=== PATIENT | male | born 1965 | race Caucasian/White ===

== ENCOUNTER → 2016-07-15 | Outpatient (CLI) | payer BC ==
[~2016-07-15] MED LIST: BACTRIM DS 8001 TAB PO; CEFTIN 250250 MG/TAB PO; CEFTIN250 M1 PO; CIPRO 250MG TA250 MG PO; COLISTIN IV; ERYTHROMYCIN E3.5 GM OU; KLONOPIN 0.5MG0.5 MG PO; LEVSIN0.125 M1 PO; LORTAB 5/500 501 TAB PO; PROBIOTIC FORMU1 CAP PO; PYRIDIUM 100MG100 MG PO; ROCEPHIN 2GM VIAL21 IV; TEARS NATURALE15 M1 OP; TOVIAZ8 MG PO; TYLENOL 325MG325 MG PO
== END ==
LOC: SUN.DIA 10:25
DX: E11.65 Type 2 diabetes mellitus with hyperglycemia (principal); Z79.4 Long term (current) use of insulin; Z71.3 Dietary counseling and surveillance; F17.210 Nicotine dependence, cigarettes, uncomplicated
CPT/HCPCS: G0108

== ENCOUNTER → 2016-08-13 | Outpatient (CLI) | payer BC | LOC: SUN.DIA 11:44 | DX: E11.65 Type 2 diabetes mellitus with hyperglycemia (principal); Z79.84 Long term (current) use of oral hypoglycemic drugs; E66.9 Obesity, unspecified; Z71.3 Dietary counseling and surveillance; E78.5 Hyperlipidemia, unspecified; I10 Essential (primary) hypertension | CPT/HCPCS: G0108 ==

== ENCOUNTER 2017-08-17 14:48 | Inpatient (IN) | payer OTHER ==
[~2017-08-17] VITALS: Ht 182.9 cm; Wt 97.5 kg
[2017-08-17] VITALS (352 sets, daily range): BP systolic 93–115; BP diastolic 57–76; PULSE 94–100; TEMP 97.9–98; O2SAT 76–100
[2017-08-17] MEDS ORDERED: TRESIBA FL100 UNIT/1 SQ (14:54)
[2017-08-17 15:20] LABS: BASO # 0.1 (0.0-0.2); BASO % 0.5 % (0.0-2.0); EOS # 0.1 (0.0-0.7); EOS % 0.7 % (0-4.0); GRAN # 11.5 (1.4-6.5); GRAN % 76.3 % (42.2-75.2); HEMATOCRIT 42.5 % (42.0-52.0); HEMOGLOBIN 14.1 g/dl (13.5-18.0); LYMPH # 2.3 (1.2-3.4); LYMPH % 14.9 % (20.0-51.0); MEAN CELL VOLUME 92 fl (80.0-100.0); MEAN CORPUSCULAR HEMOGLOBIN 31 pg (27.0-31.0); MEAN CORPUSCULAR HGB CONC 33 g/dl (33.0-37.0); MEAN PLATELET VOLUME 9.2 fl (7.4-10.4); MONO % 6.8 % (1.7-9.3); PLATELET COUNT 513 K/mm3 (130-400); RED BLOOD COUNT 4.63 M/mm3 (4.20-5.60); REDCELL DISTRIBUTION WIDTH-CV 13.7 % (11.5-14.5)
[2017-08-17 15:24] LABS: INR 1.2 (0.8-3.0); PROTHROMBIN TIME 14.3 SECONDS (9.7-12.8)
[2017-08-17 15:28] LABS: ALANINE AMINOTRANSFERASE 40 U/L (21-72); ALBUMIN 3.5 gm/dL (3.5-5.0); ALKALINE PHOSPHATASE 135 U/L (50-136); ANION GAP 12 mmol/L (7-16); AST,SGOT 21 U/L (15-37); BILIRUBIN,TOTAL 0.4 mg/dL (0.0-1.0); BLOOD UREA NITROGEN 32 mg/dL (9-20); CALCIUM 9.4 mg/dL (8.4-10.2); CARBON DIOXIDE 24 mmol/L (22-30); CHLORIDE 101 mmol/L (98-107); CREATININE, serum 0.92 mg/dL (0.66-1.25); GLUCOSE 153 mg/dL (74-106); LIPASE 106 U/L (23-300); POTASSIUM 3.7 mmol/L (3.4-5.0); SODIUM 137 mmol/L (137-145); TOTAL PROTEIN 8.1 gm/dL (6.4-8.2)
[2017-08-17 15:46] LABS: TROPONIN-I < 0.012 ng/mL (0.000-0.034)
[2017-08-18] VITALS (1315 sets, daily range): BP systolic 91–129; BP diastolic 52–72; PULSE 74–115; TEMP 97.6–98.5; O2SAT 69–100
[2017-08-18 06:11] LABS: BASO # 0.1 (0.0-0.2); BASO % 0.5 % (0.0-2.0); EOS # 0.2 (0.0-0.7); EOS % 1.8 % (0-4.0); GRAN # 6.1 (1.4-6.5); GRAN % 62.3 % (42.2-75.2); LYMPH # 2.5 (1.2-3.4); LYMPH % 25.4 % (20.0-51.0); MEAN CELL VOLUME 93 fl (80.0-100.0); MEAN CORPUSCULAR HGB CONC 32 g/dl (33.0-37.0); MEAN PLATELET VOLUME 9.3 fl (7.4-10.4); MONO # 0.9 (0.1-0.6); MONO % 9.4 % (1.7-9.3); RED BLOOD COUNT 3.67 M/mm3 (4.20-5.60); REDCELL DISTRIBUTION WIDTH-CV 13.9 % (11.5-14.5)
[2017-08-18 06:17] LABS: MEAN CORPUSCULAR HEMOGLOBIN 30 pg (27.0-31.0); PLATELET COUNT 380 K/mm3 (130-400)
[2017-08-18 06:22] LABS: CALCIUM 8.1 mg/dL (8.4-10.2); CREATININE, serum 0.74 mg/dL (0.66-1.25); POTASSIUM 4.1 mmol/L (3.4-5.0)
[2017-08-19] VITALS (764 sets, daily range): BP systolic 94–112; BP diastolic 53–73; PULSE 62–79; TEMP 97–983.7; O2SAT 88–100
[2017-08-19 17:07] LABS: BASO # 0.1 (0.0-0.2); BASO % 0.8 % (0.0-2.0); EOS # 0.2 (0.0-0.7); EOS % 1.9 % (0-4.0); GRAN # 4.8 (1.4-6.5); GRAN % 53.2 % (42.2-75.2); HEMATOCRIT 33.4 % (42.0-52.0); LYMPH # 3.4 (1.2-3.4); LYMPH % 37.2 % (20.0-51.0); MEAN CELL VOLUME 92 fl (80.0-100.0); MEAN CORPUSCULAR HEMOGLOBIN 30 pg (27.0-31.0); MEAN CORPUSCULAR HGB CONC 33 g/dl (33.0-37.0); MEAN PLATELET VOLUME 9.6 fl (7.4-10.4); MONO # 0.6 (0.1-0.6); MONO % 6.6 % (1.7-9.3); PLATELET COUNT 390 K/mm3 (130-400); RED BLOOD COUNT 3.63 M/mm3 (4.20-5.60); REDCELL DISTRIBUTION WIDTH-CV 13.8 % (11.5-14.5)
[2017-08-19 17:14] LABS: ALANINE AMINOTRANSFERASE 33 U/L (21-72); ALBUMIN 2.6 gm/dL (3.5-5.0); ALKALINE PHOSPHATASE 93 U/L (50-136); ANION GAP 5 mmol/L (7-16); AST,SGOT 23 U/L (15-37); BILIRUBIN,TOTAL < 0.1 mg/dL (0.0-1.0); BLOOD UREA NITROGEN 20 mg/dL (9-20); CARBON DIOXIDE 23 mmol/L (22-30); CHLORIDE 107 mmol/L (98-107); CREATININE, serum 0.66 mg/dL (0.66-1.25); GLUCOSE 154 mg/dL (74-106); POTASSIUM 3.8 mmol/L (3.4-5.0); SODIUM 135 mmol/L (137-145); TOTAL PROTEIN 6.2 gm/dL (6.4-8.2)
[2017-08-20 03:50] VITALS: BP 94/58; PULSE 66; TEMP 98
[2017-08-20 06:36] LABS: BASO # 0.1 (0.0-0.2); BASO % 0.8 % (0.0-2.0); EOS # 0.1 (0.0-0.7); GRAN # 2.5 (1.4-6.5); GRAN % 41.4 % (42.2-75.2); LYMPH % 49.2 % (20.0-51.0); MEAN CELL VOLUME 92 fl (80.0-100.0); MEAN CORPUSCULAR HGB CONC 33 g/dl (33.0-37.0); MEAN PLATELET VOLUME 9.3 fl (7.4-10.4); MONO # 0.4 (0.1-0.6); MONO % 6.4 % (1.7-9.3); PLATELET COUNT 381 K/mm3 (130-400); RED BLOOD COUNT 3.58 M/mm3 (4.20-5.60); REDCELL DISTRIBUTION WIDTH-CV 13.7 % (11.5-14.5)
[2017-08-20 06:50] LABS: CALCIUM 8.2 mg/dL (8.4-10.2); CREATININE, serum 0.63 mg/dL (0.66-1.25); POTASSIUM 3.9 mmol/L (3.4-5.0)
[2017-08-20 06:52] LABS: HEMATOCRIT 32.9 % (42.0-52.0); HEMOGLOBIN 10.7 g/dl (13.5-18.0); MEAN CORPUSCULAR HEMOGLOBIN 30 pg (27.0-31.0)
[2017-08-20 07:43] VITALS: BP 98/57; PULSE 66; TEMP 98.2
[2017-08-20 11:11] VITALS: BP 98/59; PULSE 74; TEMP 98.4
[2017-08-20 15:42] VITALS: BP 108/66; PULSE 81; TEMP 97.8
[2017-08-20 19:08] VITALS: BP 108/61; PULSE 82; TEMP 98.4
[2017-08-20 23:45] VITALS: BP 87/53; PULSE 74; TEMP 97.8
[2017-08-21 04:27] VITALS: BP 98/51; PULSE 72; TEMP 97.7
[2017-08-21 06:53] LABS: BASO # 0.1 (0.0-0.2); BASO % 0.8 % (0.0-2.0); EOS # 0.1 (0.0-0.7); EOS % 1.6 % (0-4.0); GRAN # 3.5 (1.4-6.5); HEMATOCRIT 35.5 % (42.0-52.0); HEMOGLOBIN 11.4 g/dl (13.5-18.0); LYMPH % 42.1 % (20.0-51.0); MEAN CELL VOLUME 93 fl (80.0-100.0); MEAN CORPUSCULAR HEMOGLOBIN 30 pg (27.0-31.0); MEAN CORPUSCULAR HGB CONC 32 g/dl (33.0-37.0); MEAN PLATELET VOLUME 9.7 fl (7.4-10.4); MONO # 0.4 (0.1-0.6); MONO % 6.1 % (1.7-9.3); PLATELET COUNT 411 K/mm3 (130-400); REDCELL DISTRIBUTION WIDTH-CV 13.8 % (11.5-14.5)
[2017-08-21 07:07] LABS: CALCIUM 8.5 mg/dL (8.4-10.2); CREATININE, serum 0.6 mg/dL (0.66-1.25); POTASSIUM 3.9 mmol/L (3.4-5.0)
[2017-08-21 07:30] VITALS: BP 97/66; PULSE 57; TEMP 97.5
[2017-08-21] MEDS ORDERED: TYLENOL 325MG325 MG PO (09:21)
[2017-08-21] MEDS ORDERED: MIRALAX 255 GM255 GM PO (09:21)
[2017-08-21] MEDS ORDERED: ROCEPHIN 2GM VIAL21 IJ (09:24)
[2017-08-21 12:16] VITALS: BP 98/61; PULSE 75; TEMP 97.5
[2017-08-21 16:08] VITALS: BP 99/62; PULSE 86; TEMP 98.2
[2017-08-21 19:09] VITALS: BP 97/49; PULSE 81; TEMP 98.9
[2017-08-21 23:17] VITALS: BP 87/52; PULSE 76; TEMP 97.8
[2017-08-22 03:35] VITALS: BP 96/52; PULSE 55; TEMP 98.2
[2017-08-22 07:14] LABS: BASO # 0.1 (0.0-0.2); EOS # 0.1 (0.0-0.7); EOS % 1.7 % (0-4.0); GRAN # 2.6 (1.4-6.5); GRAN % 43.9 % (42.2-75.2); LYMPH # 2.9 (1.2-3.4); LYMPH % 47.8 % (20.0-51.0); MEAN CELL VOLUME 93 fl (80.0-100.0); MEAN CORPUSCULAR HGB CONC 32 g/dl (33.0-37.0); MEAN PLATELET VOLUME 9.4 fl (7.4-10.4); MONO # 0.3 (0.1-0.6); MONO % 5.4 % (1.7-9.3); PLATELET COUNT 417 K/mm3 (130-400); RED BLOOD COUNT 3.96 M/mm3 (4.20-5.60); REDCELL DISTRIBUTION WIDTH-CV 13.6 % (11.5-14.5)
[2017-08-22 07:24] LABS: HEMATOCRIT 36.9 % (42.0-52.0); HEMOGLOBIN 11.8 g/dl (13.5-18.0); MEAN CORPUSCULAR HEMOGLOBIN 30 pg (27.0-31.0)
[2017-08-22 07:35] LABS: CALCIUM 8.9 mg/dL (8.4-10.2); CREATININE, serum 0.7 mg/dL (0.66-1.25); POTASSIUM 4.4 mmol/L (3.4-5.0)
[2017-08-22 09:31] VITALS: BP 114/69; PULSE 52; TEMP 97.9
[2017-08-22 12:07] VITALS: BP 102/70; PULSE 59; TEMP 97.5
[2017-08-22 17:08] VITALS: BP 97/59; PULSE 70; TEMP 98.5
[2017-08-22 20:06] VITALS: BP 105/63; PULSE 57; TEMP 98.7
[2017-08-22 23:32] VITALS: BP 91/55; PULSE 72; TEMP 98.5
[2017-08-23 05:27] VITALS: BP 87/52; PULSE 75; TEMP 98.3
[2017-08-23 07:34] VITALS: BP 102/67; PULSE 66; TEMP 97.5
[2017-08-23 11:56] VITALS: BP 93/58; PULSE 64; TEMP 98.4
[2017-08-23 15:54] VITALS: BP 90/56; PULSE 81; TEMP 98.7
[2017-08-23 20:50] VITALS: BP 105/57; PULSE 86; TEMP 97.4
[2017-08-24 01:13] VITALS: BP 101/56; PULSE 68; TEMP 97.3
[2017-08-24 05:26] VITALS: BP 90/52; PULSE 74; TEMP 97.6
[2017-08-24 06:28] LABS: HEMATOCRIT 39.9 % (42.0-52.0); HEMOGLOBIN 12.8 g/dl (13.5-18.0); MEAN CELL VOLUME 93 fl (80.0-100.0); MEAN CORPUSCULAR HEMOGLOBIN 30 pg (27.0-31.0); MEAN CORPUSCULAR HGB CONC 32 g/dl (33.0-37.0); MEAN PLATELET VOLUME 9.5 fl (7.4-10.4); PLATELET COUNT 472 K/mm3 (130-400); REDCELL DISTRIBUTION WIDTH-CV 13.8 % (11.5-14.5)
[2017-08-24 06:51] LABS: CREATININE, serum 0.69 mg/dL (0.66-1.25); POTASSIUM 4.1 mmol/L (3.4-5.0)
[2017-08-24 08:00] VITALS: BP 97/52; PULSE 60; TEMP 97.3
[2017-08-24 11:16] VITALS: BP 102/58; PULSE 76; TEMP 97.9
[2017-08-24 16:50] VITALS: BP 102/58; PULSE 76; TEMP 97.9
[2017-08-24] MEDS ORDERED: KLONOPIN 0.5MG0.5 MG PO (18:09)
[2017-08-25] MEDS ORDERED: NOVOLOG 100U100 U/M1 SQ (18:19)
== END 2017-08-24 16:45 | DRG 853 ==
LOC: COL.ER 14:48 → ICU 16:44 → MEDICAL 08-19 13:40
PROVIDERS: Emergency Medicine; Family Medicine; Physician Assistant; Surgery
PROC: 02HV33Z Insertion of Infusion Device into Superior Vena Cava, Percutaneous Approach (ICD-10-PCS; 2017-08-17)
PROC: 0QB20ZZ Excision of Right Pelvic Bone, Open Approach (ICD-10-PCS; principal; 2017-08-18 11:45)
DX: A41.9 Sepsis, unspecified organism (principal); L89.214 Pressure ulcer of right hip, stage 4; E44.0 Moderate protein-calorie malnutrition; G82.21 Paraplegia, complete; Z68.1 Body mass index [BMI] 19.9 or less, adult; R65.20 Severe sepsis without septic shock; L89.621 Pressure ulcer of left heel, stage 1; K59.00 Constipation, unspecified; E11.649 Type 2 diabetes mellitus with hypoglycemia without coma; N31.9 Neuromuscular dysfunction of bladder, unspecified; I95.9 Hypotension, unspecified; F17.210 Nicotine dependence, cigarettes, uncomplicated; Z79.4 Long term (current) use of insulin
CPT/HCPCS: OP; 99223-AI; 99231-AI; 99232-AI; 99239; C1751; J0696; J1644; J1650; J1815; J2185; J2704; J3010; J3370; J7030; J7042; J7050; J7120

== ENCOUNTER 2017-10-23 19:10 | Inpatient (IN) | payer OTHER ==
[2017-10-23] VITALS (24 sets, daily range): O2SAT 95–98
[~2017-10-23] VITALS: Ht 182.9 cm; Wt 68.0 kg
[~2017-10-23 19:10] MED LIST changes: +MIRALAX 255 GM255 GM PO; +NOVOLOG 100U100 U/M1 SQ; +ROCEPHIN 2GM VIAL21 IJ; +TRESIBA FL100 UNIT/1 SQ
[2017-10-23 19:46] LABS: BASO # 0.1 (0.0-0.2); BASO % 0.3 % (0.0-2.0); EOS # 0.1 (0.0-0.7); EOS % 0.4 % (0-4.0); GRAN # 10.6 (1.4-6.5); GRAN % 68.7 % (42.2-75.2); HEMATOCRIT 32.4 % (42.0-52.0); HEMOGLOBIN 10.9 g/dl (13.5-18.0); LYMPH # 3.2 (1.2-3.4); LYMPH % 20.4 % (20.0-51.0); MEAN CELL VOLUME 87 fl (80.0-100.0); MEAN CORPUSCULAR HEMOGLOBIN 29 pg (27.0-31.0); MEAN CORPUSCULAR HGB CONC 34 g/dl (33.0-37.0); MEAN PLATELET VOLUME 9.3 fl (7.4-10.4); MONO # 1.5 (0.1-0.6); MONO % 9.6 % (1.7-9.3); PLATELET COUNT 485 K/mm3 (130-400); RED BLOOD COUNT 3.74 M/mm3 (4.20-5.60); REDCELL DISTRIBUTION WIDTH-CV 13.7 % (11.5-14.5)
[2017-10-23 19:55] LABS: ALBUMIN 3.1 gm/dL (3.5-5.0); BILIRUBIN,TOTAL 0.3 mg/dL (0.0-1.0); CALCIUM 8.9 mg/dL (8.4-10.2); CREATININE, serum 0.69 mg/dL (0.66-1.25); POTASSIUM 3.6 mmol/L (3.4-5.0); TOTAL PROTEIN 7.5 gm/dL (6.4-8.2)
[2017-10-23 20:18] LABS: COLLECTION METHOD CLEAN CATCH
[2017-10-23 20:27] LABS: MUCOUS Present /lpf; PH 5 (5-8); URINE APPEARANCE Cloudy; URINE BACTERIA Moderate /hpf; URINE BILIRUBIN Negative (NEGATIVE); URINE BLOOD 1+ (NEGATIVE); URINE COLOR Amber; URINE GLUCOSE Negative (NEGATIVE); URINE KETONE Negative (NEGATIVE); URINE LEUKOCYTE ESTERASE 3+ (NEGATIVE); URINE NITRATE Positive (NEGATIVE); URINE PROTEIN(semi-quant) 1+ (NEGATIVE); URINE UROBILINOGEN >=4.0 mg/dL (NEGATIVE)
[2017-10-23 21:20] LABS: INR 1.2 (0.8-3.0); PROTHROMBIN TIME 13.9 SECONDS (9.7-12.8)
[2017-10-23 21:21] LABS: SALICYLATE < 1.0 mg/dL
[2017-10-23 21:32] LABS: TROPONIN-I < 0.012 ng/mL (0.000-0.034)
[2017-10-23 22:07] LABS: ARTERIAL BLD GAS O2 SATURATION 96.4 % (92-100); ARTERIAL BLD GAS TCO2 CT 22.9; ARTERIAL BLOOD GAS BASE EXCESS -1.8 (-2-2); ARTERIAL BLOOD GAS HCO3 21.8 meq/L (22-26); ARTERIAL BLOOD GAS PCO2 33.2 mmHg (35-45); ARTERIAL BLOOD GAS PO2 86.7 mmHg (80-100); ARTERIAL BLOOD GAS pH 7.44 (7.35-7.45)
[2017-10-23 22:19] LABS: IRON,SERUM 17 ug/dL (35-150)
[2017-10-23 22:28] LABS: TOTAL IRON BINDING CAPACITY 210 ug/dL (261-462)
[2017-10-23 22:55] LABS: FERRITIN 431 ng/mL (18-464)
[2017-10-24] VITALS (671 sets, daily range): BP systolic 91–126; BP diastolic 58–87; PULSE 51–80; TEMP 97.3–100.4; O2SAT 69–100
[2017-10-24 05:51] LABS: INR 1.3 (0.8-3.0); PROTHROMBIN TIME 14.2 SECONDS (9.7-12.8)
[2017-10-24 05:52] LABS: BASO % 0.2 % (0.0-2.0); EOS % 0.1 % (0-4.0); GRAN # 11.8 (1.4-6.5); GRAN % 82.8 % (42.2-75.2); HEMOGLOBIN 10.6 g/dl (13.5-18.0); LYMPH # 1.6 (1.2-3.4); LYMPH % 11.3 % (20.0-51.0); MEAN CELL VOLUME 90 fl (80.0-100.0); MEAN CORPUSCULAR HEMOGLOBIN 29 pg (27.0-31.0); MEAN CORPUSCULAR HGB CONC 32 g/dl (33.0-37.0); MEAN PLATELET VOLUME 9.4 fl (7.4-10.4); MONO # 0.7 (0.1-0.6); PLATELET COUNT 504 K/mm3 (130-400); RED BLOOD COUNT 3.69 M/mm3 (4.20-5.60)
[2017-10-24 05:56] LABS: ALBUMIN 2.7 gm/dL (3.5-5.0); BILIRUBIN,TOTAL 0.3 mg/dL (0.0-1.0); CALCIUM 8.2 mg/dL (8.4-10.2); CREATININE, serum 0.53 mg/dL (0.66-1.25); TOTAL PROTEIN 6.5 gm/dL (6.4-8.2)
[2017-10-24 06:02] LABS: HEMATOCRIT 33.3 % (42.0-52.0)
[2017-10-24 10:09] LABS: ARTERIAL BLD GAS O2 SATURATION 96.4 % (92-100); ARTERIAL BLD GAS TCO2 CT 20.1; ARTERIAL BLOOD GAS BASE EXCESS -4.5 (-2-2); ARTERIAL BLOOD GAS HCO3 19.1 meq/L (22-26); ARTERIAL BLOOD GAS PCO2 30.6 mmHg (35-45); ARTERIAL BLOOD GAS PO2 90.1 mmHg (80-100); ARTERIAL BLOOD GAS pH 7.41 (7.35-7.45)
[2017-10-25] VITALS (9 sets, daily range): BP systolic 90–123; BP diastolic 58–84; PULSE 55–79; TEMP 97.6–98; O2SAT 93–99
[2017-10-25 05:45] LABS: ARTERIAL BLD GAS O2 SATURATION 96.4 % (92-100); ARTERIAL BLD GAS TCO2 CT 24.5; ARTERIAL BLOOD GAS BASE EXCESS -0.4 (-2-2); ARTERIAL BLOOD GAS HCO3 23.5 meq/L (22-26); ARTERIAL BLOOD GAS PCO2 35.1 mmHg (35-45); ARTERIAL BLOOD GAS PO2 88.9 mmHg (80-100); ARTERIAL BLOOD GAS pH 7.44 (7.35-7.45)
[2017-10-25 05:45] LABS: BASO % 0.2 % (0.0-2.0); GRAN # 8.2 (1.4-6.5); LYMPH # 2.1 (1.2-3.4); LYMPH % 18.9 % (20.0-51.0); MEAN CELL VOLUME 91 fl (80.0-100.0); MEAN CORPUSCULAR HGB CONC 32 g/dl (33.0-37.0); MEAN PLATELET VOLUME 9.8 fl (7.4-10.4); MONO # 0.5 (0.1-0.6); MONO % 4.3 % (1.7-9.3); RED BLOOD COUNT 3.01 M/mm3 (4.20-5.60)
[2017-10-25 05:46] LABS: INR 1.1 (0.8-3.0); PROTHROMBIN TIME 12.8 SECONDS (9.7-12.8)
[2017-10-25 05:50] LABS: HEMATOCRIT 27.4 % (42.0-52.0); HEMOGLOBIN 8.8 g/dl (13.5-18.0); MEAN CORPUSCULAR HEMOGLOBIN 29 pg (27.0-31.0); PLATELET COUNT 391 K/mm3 (130-400)
[2017-10-25 05:55] LABS: ALANINE AMINOTRANSFERASE 56 U/L (21-72); ALBUMIN 2.3 gm/dL (3.5-5.0); ALKALINE PHOSPHATASE 82 U/L (50-136); ANION GAP 11 mmol/L (7-16); AST,SGOT 22 U/L (15-37); BILIRUBIN,TOTAL < 0.1 mg/dL (0.0-1.0); BLOOD UREA NITROGEN 14 mg/dL (9-20); CALCIUM 8.2 mg/dL (8.4-10.2); CARBON DIOXIDE 23 mmol/L (22-30); CHLORIDE 111 mmol/L (98-107); CREATININE, serum 0.59 mg/dL (0.66-1.25); GLUCOSE 161 mg/dL (74-106); POTASSIUM 3.5 mmol/L (3.4-5.0); SODIUM 145 mmol/L (137-145); TOTAL PROTEIN 5.7 gm/dL (6.4-8.2)
[2017-10-26 03:24] VITALS: BP 86/52; PULSE 68; TEMP 98
[2017-10-26 06:31] LABS: BASO % 0.4 % (0.0-2.0); EOS # 0.1 (0.0-0.7); EOS % 0.8 % (0-4.0); GRAN # 4.4 (1.4-6.5); GRAN % 46.3 % (42.2-75.2); LYMPH # 4.2 (1.2-3.4); MEAN CELL VOLUME 91 fl (80.0-100.0); MEAN CORPUSCULAR HGB CONC 32 g/dl (33.0-37.0); MEAN PLATELET VOLUME 9.9 fl (7.4-10.4); MONO # 0.7 (0.1-0.6); MONO % 7.3 % (1.7-9.3); PLATELET COUNT 419 K/mm3 (130-400); RED BLOOD COUNT 3.11 M/mm3 (4.20-5.60); REDCELL DISTRIBUTION WIDTH-CV 14.4 % (11.5-14.5)
[2017-10-26 06:39] LABS: HEMATOCRIT 28.2 % (42.0-52.0); HEMOGLOBIN 8.9 g/dl (13.5-18.0); MEAN CORPUSCULAR HEMOGLOBIN 29 pg (27.0-31.0)
[2017-10-26 06:49] LABS: INR 1.1 (0.8-3.0); PROTHROMBIN TIME 12.2 SECONDS (9.7-12.8)
[2017-10-26 06:55] LABS: ALANINE AMINOTRANSFERASE 42 U/L (21-72); ALBUMIN 2.2 gm/dL (3.5-5.0); ALKALINE PHOSPHATASE 67 U/L (50-136); ANION GAP 10 mmol/L (7-16); AST,SGOT 31 U/L (15-37); BILIRUBIN,TOTAL < 0.1 mg/dL (0.0-1.0); BLOOD UREA NITROGEN 18 mg/dL (9-20); CALCIUM 8.1 mg/dL (8.4-10.2); CARBON DIOXIDE 25 mmol/L (22-30); CHLORIDE 107 mmol/L (98-107); CREATININE, serum 0.64 mg/dL (0.66-1.25); GLUCOSE 258 mg/dL (74-106); POTASSIUM 3.2 mmol/L (3.4-5.0); SODIUM 143 mmol/L (137-145); TOTAL PROTEIN 5.3 gm/dL (6.4-8.2)
[2017-10-26 07:33] VITALS: BP 103/61; PULSE 72; TEMP 98.2
[2017-10-26 11:48] VITALS: BP 113/70; PULSE 75; TEMP 98.4
[2017-10-26 16:31] VITALS: BP 118/65; PULSE 89; TEMP 97.2
[2017-10-26 23:56] VITALS: BP 116/58; PULSE 68; TEMP 98.9
[2017-10-27 04:22] VITALS: BP 133/74; PULSE 65; TEMP 98.1
[2017-10-27 07:46] VITALS: BP 109/62; PULSE 66; TEMP 98.2
[2017-10-27 08:43] LABS: HEMOGLOBIN 10.4 g/dl (13.5-18.0); MEAN CELL VOLUME 89 fl (80.0-100.0); MEAN CORPUSCULAR HEMOGLOBIN 29 pg (27.0-31.0); MEAN CORPUSCULAR HGB CONC 32 g/dl (33.0-37.0); MEAN PLATELET VOLUME 9.4 fl (7.4-10.4); PLATELET COUNT 510 K/mm3 (130-400); RED BLOOD COUNT 3.64 M/mm3 (4.20-5.60); REDCELL DISTRIBUTION WIDTH-CV 14.3 % (11.5-14.5)
[2017-10-27 08:48] LABS: HEMATOCRIT 32.4 % (42.0-52.0)
[2017-10-27 08:51] LABS: CALCIUM 8.2 mg/dL (8.4-10.2); CREATININE, serum 0.71 mg/dL (0.66-1.25); POTASSIUM 3.3 mmol/L (3.4-5.0)
[2017-10-27 09:20] LABS: BAND 5 % (0-10); BASOPHIL 1 % (0-2); EOSINOPHIL 1 % (0-4); LYMPHOCYTE 36 % (20.0-51.0); METAMYELOCYTE 1 % (0-0); NEUTROPHILS 56 % (42.0-75.2); PLATELET ESTIMATE INCREASED (NORMAL)
[2017-10-27 12:16] VITALS: BP 112/71; PULSE 69; TEMP 97.7
[2017-10-27 15:37] VITALS: BP 114/63; PULSE 71; TEMP 98.3
[2017-10-27 19:46] VITALS: BP 116/74; PULSE 70; TEMP 98.8
[2017-10-27 23:19] VITALS: BP 106/61; PULSE 60; TEMP 98.3
[2017-10-28 03:37] VITALS: BP 115/70; PULSE 62; TEMP 98.2
[2017-10-28 08:14] VITALS: BP 111/73; PULSE 72; TEMP 98.7
[2017-10-28 12:42] VITALS: BP 109/75; PULSE 73; TEMP 98.1
[2017-10-28 16:27] VITALS: BP 118/75; PULSE 72; TEMP 98.4
[2017-10-28 20:22] VITALS: BP 100/64; PULSE 94; TEMP 98.5
[2017-10-28 23:40] VITALS: BP 147/90; PULSE 60; TEMP 98.4
[2017-10-29 03:55] VITALS: BP 102/68; PULSE 68; TEMP 98.2
[2017-10-29 07:44] LABS: BASO % 0.3 % (0.0-2.0); EOS # 0.4 (0.0-0.7); EOS % 3.7 % (0-4.0); GRAN # 6.3 (1.4-6.5); HEMOGLOBIN 11.3 g/dl (13.5-18.0); LYMPH # 3.2 (1.2-3.4); LYMPH % 29.6 % (20.0-51.0); MEAN CELL VOLUME 89 fl (80.0-100.0); MEAN CORPUSCULAR HEMOGLOBIN 29 pg (27.0-31.0); MEAN CORPUSCULAR HGB CONC 32 g/dl (33.0-37.0); MEAN PLATELET VOLUME 9.4 fl (7.4-10.4); MONO # 0.6 (0.1-0.6); PLATELET COUNT 530 K/mm3 (130-400); RED BLOOD COUNT 3.95 M/mm3 (4.20-5.60); REDCELL DISTRIBUTION WIDTH-CV 14.6 % (11.5-14.5)
[2017-10-29 07:51] LABS: CALCIUM 8.8 mg/dL (8.4-10.2); CREATININE, serum 0.9 mg/dL (0.66-1.25); POTASSIUM 3.7 mmol/L (3.4-5.0)
[2017-10-29 07:52] LABS: HEMATOCRIT 35.3 % (42.0-52.0)
[2017-10-29 07:56] VITALS: BP 124/77; PULSE 66; TEMP 98.3
[2017-10-29 12:36] VITALS: BP 99/69; PULSE 94; TEMP 98.2
[2017-10-29] MEDS ORDERED: CIPRO 500MG TA500 MG PO (13:42)
== END 2017-10-29 15:40 | disposition home or self-care (01) | DRG 698 ==
LOC: COL.ER 19:10 → MEDICAL 20:05 → ICU 20:05 → MEDICAL 10-25 20:17
PROVIDERS: Emergency Medicine; Nurse Practitioner Family; Physician Assistant
DX: T83.511A Infection and inflammatory reaction due to indwelling urethral catheter, initial encounter (principal); A41.52 Sepsis due to Pseudomonas; L89.154 Pressure ulcer of sacral region, stage 4; R65.21 Severe sepsis with septic shock; A41.81 Sepsis due to Enterococcus; G82.21 Paraplegia, complete; N39.0 Urinary tract infection, site not specified; B96.89 Other specified bacterial agents as the cause of diseases classified elsewhere; B96.5 Pseudomonas (aeruginosa) (mallei) (pseudomallei) as the cause of diseases classified elsewhere; E11.65 Type 2 diabetes mellitus with hyperglycemia; S24.152S Other incomplete lesion at T2-T6 level of thoracic spinal cord, sequela; V89.2XXS Person injured in unspecified motor-vehicle accident, traffic, sequela; N31.8 Other neuromuscular dysfunction of bladder; Z87.891 Personal history of nicotine dependence; E87.6 Hypokalemia
CPT/HCPCS: 99223-AI; 99232-AI; 99233-AI; 99239; A4314; C9113; J0744; J1644; J1720; J1815; J2543; J3370; J7030; J7050; J7060

== ENCOUNTER 2017-10-26 09:30 | Outpatient (RCR) | payer OTHER ==
[2017-09-25 09:27] VITALS: BP 111/67; PULSE 90; TEMP 97.6
[2017-09-26 09:20] VITALS: BP 105/65; PULSE 123
[2017-09-27 09:08] VITALS: BP 122/74; PULSE 94; TEMP 97.3
[2017-09-28 09:10] VITALS: BP 128/80; PULSE 108; TEMP 97.4
[2017-09-29 09:35] VITALS: BP 115/75; PULSE 97; TEMP 97.7
[2017-09-30 09:56] VITALS: BP 121/74; PULSE 78; TEMP 97.9
[2017-10-01 10:08] VITALS: BP 133/84; PULSE 93; TEMP 98.4
[2017-10-02 09:23] VITALS: BP 115/83; PULSE 95; TEMP 98
[2017-10-03 08:00] VITALS: BP 116/68; PULSE 80; TEMP 97.3
[2017-10-04 08:00] VITALS: BP 116/74; PULSE 74; TEMP 97.1
[2017-10-05 09:20] VITALS: BP 117/66; PULSE 71; TEMP 97.4
[2017-10-12 09:16] VITALS: BP 118/74; PULSE 78; TEMP 98
[~2017-10-26] VITALS: Ht 182.9 cm; Wt 72.7 kg
[2017-10-29] MEDS ORDERED: CIPRO 500MG TA500 MG PO (13:42)
== END 2017-11-02 10:08 | disposition home or self-care (01) ==
LOC: EUO 09:30
DX: L89.329 Pressure ulcer of left buttock, unspecified stage (principal); L89.319 Pressure ulcer of right buttock, unspecified stage; Z45.2 Encounter for adjustment and management of vascular access device; Z95.9 Presence of cardiac and vascular implant and graft, unspecified
CPT/HCPCS: J0696; J1644

== ENCOUNTER 2021-08-26 15:24 | Outpatient (RCR) | payer BC ==
[~2021-08-26 15:24] MED LIST changes: +CIPRO 500MG TA500 MG PO
== END 2021-09-12 | disposition home or self-care (01) ==
LOC: MKS.ESL.OT
DX: E11.622 Type 2 diabetes mellitus with other skin ulcer (principal); G11.4 Hereditary spastic paraplegia; I73.1 Thromboangiitis obliterans [Buerger's disease]